=== PATIENT | male | born 1955 | race Caucasian/White ===

== ENCOUNTER → 2018-03-25 01:44 | Outpatient (CLI) | payer MEDICARE, SELFPAY ==
[2018-03-25 11:12] LABS: Hemoglobin A1C 7.8 % (4.5-6.2)
== END ==
PROVIDERS: PCP Family Medicine; Visit Provider Family Medicine
DX: E11.65 Type 2 diabetes mellitus with hyperglycemia (principal)
CPT/HCPCS: 36415; 83036

== ENCOUNTER 2018-06-24 01:39 | Outpatient (CLI) | payer MEDICARE, SELFPAY ==
[2018-06-24 12:12] LABS: Hemoglobin A1C 7.4 % (4.5-6.2)
== END 2018-06-24 01:59 ==
PROVIDERS: PCP Family Medicine; Visit Provider Family Medicine
DX: E11.65 Type 2 diabetes mellitus with hyperglycemia (principal)
CPT/HCPCS: 36415; 83036

== ENCOUNTER 2018-09-16 09:21 | Outpatient (CLI) | payer MEDICARE, SELFPAY ==
[2018-09-16 10:55] LABS: Hemoglobin A1C 7.8 % (4.5-6.2)
[2018-09-16 11:48] LABS: COMMENT (LAB VIEW ONLY) 50.69 mg/dL; Microalb ug/mg Crea 39.1 ug/mg Cr
[2018-09-16 13:16] LABS: CREATININE 0.87 mg/dL (0.70-1.30); Cholesterol 220 mg/dL (50-200); HDL Cholesterol 51 mg/dL (40-60); LDL CHOLESTEROL 143 mg/dL (<100); Potassium 4.3 mmol/L (3.5-5.1); Triglyceride 170 mg/dL (30-150)
== END 2018-09-16 09:41 ==
PROVIDERS: PCP Family Medicine; Visit Provider Family Medicine
DX: E11.9 Type 2 diabetes mellitus without complications (principal); I10 Essential (primary) hypertension
CPT/HCPCS: 36415; 80061; 83721; 82043; 82565; 82570; 83036; 84132

== ENCOUNTER 2018-12-23 11:30 | Outpatient (CLI) | payer MEDICARE, SELFPAY | END 2018-12-23 11:50 | PROVIDERS: PCP Family Medicine; Visit Provider Family Medicine | DX: E11.9 Type 2 diabetes mellitus without complications (principal) | CPT/HCPCS: 36415; 83036 ==

== ENCOUNTER 2019-03-24 01:46 | Outpatient (CLI) | payer MEDICARE, SELFPAY ==
[2019-03-24 12:59] LABS: Calculated LDL 96 mg/dL; Cholesterol 166 mg/dL (50-200); HDL Cholesterol 49 mg/dL (40-60); Triglyceride 109 mg/dL (30-150)
[2019-03-24 13:34] LABS: Hemoglobin A1C 8.5 % (4.5-6.2)
== END 2019-03-24 02:06 ==
PROVIDERS: PCP Family Medicine; Visit Provider Family Medicine
DX: E11.65 Type 2 diabetes mellitus with hyperglycemia (principal)
CPT/HCPCS: 36415; 80061; 83721; 83036

== ENCOUNTER 2019-08-02 08:14 | Outpatient (CLI) | payer MEDICARE, SELFPAY ==
[2019-08-02 10:18] LABS: Hemoglobin A1C 7.8 % (3.8-5.6)
== END 2019-08-02 08:34 ==
PROVIDERS: PCP Family Medicine; Visit Provider Family Medicine
DX: E11.9 Type 2 diabetes mellitus without complications (principal)
CPT/HCPCS: 36415; 83036

== ENCOUNTER 2020-01-31 07:08 | Outpatient (CLI) | payer MEDICARE, SELFPAY ==
[2020-01-31 12:43] LABS: CREATININE 1.02 mg/dL (0.70-1.30); Potassium 4.4 mmol/L (3.5-5.1)
[2020-01-31 13:27] LABS: COMMENT (LAB VIEW ONLY) 49.26 mg/dL; Microalb ug/mg Crea 9.7 ug/mg Cr
== END 2020-01-31 07:28 ==
PROVIDERS: PCP Family Medicine; Visit Provider Family Medicine
DX: E11.65 Type 2 diabetes mellitus with hyperglycemia (principal)
CPT/HCPCS: 36415; 82043; 82565; 82570; 83036; 84132

== ENCOUNTER 2020-05-25 04:21 | Outpatient (CLI) | payer MEDICARE, SELFPAY ==
[2020-05-25 13:15] LABS: Calculated LDL 80 mg/dL (<100); Cholesterol 159 mg/dL (<200); HDL Cholesterol 45 mg/dL (40-60); Triglyceride 172 mg/dL (<150)
[2020-05-25 14:16] LABS: Hemoglobin A1C 7.6 % (<5.7)
== END 2020-05-25 04:41 ==
PROVIDERS: PCP Family Medicine; Visit Provider Family Medicine
DX: E78.5 Hyperlipidemia, unspecified (principal); R73.9 Hyperglycemia, unspecified
CPT/HCPCS: 36415; 80061; 83036

== ENCOUNTER 2021-01-04 03:00 | Outpatient (CLI) | payer MEDICARE, SELFPAY ==
[2021-01-04 12:16] LABS: CREATININE 0.9 mg/dL (0.70-1.30); Potassium 4.3 mmol/L (3.5-5.1)
[2021-01-04 12:22] LABS: Hemoglobin A1C 7.5 % (<5.7)
== END 2021-01-04 03:01 | disposition home or self-care (01) ==
PROVIDERS: PCP Family Medicine; Visit Provider Family Medicine
DX: E11.65 Type 2 diabetes mellitus with hyperglycemia (principal); I10 Essential (primary) hypertension
CPT/HCPCS: 36415; 82565; 83036; 84132

== ENCOUNTER 2022-03-19 01:35 | Outpatient (CLI) | payer OTHER, MEDICAID, SELFPAY ==
[2022-03-19 10:41] LABS: HCT 45.5 % (40.0-50.0); HGB 15.4 g/dL (13.5-17.5); MCH 31.9 pg (27.0-33.0); MCHC 33.8 % (32.0-36.0); MCV 94 fL (80-95); MPV 9.1 fL (8.0-11.0); Platelet Count 168 10^3/uL (130-400); RBC 4.83 10^6/uL (4.36-5.78); RDW 13.1 % (11.8-14.1); RDW-SD 45.6 fL; WBC 7.07 10^3/uL (4.4-10.8)
[2022-03-19 10:48] LABS: CREATININE 0.8 mg/dL (0.70-1.30); Potassium 4.3 mmol/L (3.5-5.1)
== END 2022-03-19 01:36 | disposition home or self-care (01) ==
LOC: LBO 01:35
PROVIDERS: PCP Family Medicine; Visit Provider Family Medicine
DX: I10 Essential (primary) hypertension (principal); R53.83 Other fatigue
CPT/HCPCS: 36415; 85027; 82565; 84132

== ENCOUNTER 2022-06-19 09:06 | Outpatient (CLI) | payer OTHER, MEDICAID, SELFPAY ==
[2022-06-19 12:43] LABS: Calculated LDL 94 mg/dL (<100); Cholesterol 174 mg/dL (<200); HDL Cholesterol 63 mg/dL (40-60); Triglyceride 87 mg/dL (<150)
== END 2022-06-19 09:07 | disposition home or self-care (01) ==
LOC: LOS 09:07
PROVIDERS: PCP Family Medicine; Visit Provider Family Medicine
DX: E78.5 Hyperlipidemia, unspecified (principal)
CPT/HCPCS: 36415; 80061

== ENCOUNTER 2022-09-18 10:00 | Outpatient (REF) | payer OTHER, MEDICAID, SELFPAY ==
[2022-09-18 13:34] LABS: COMMENT (LAB VIEW ONLY) 40.44 mg/dL; Microalb ug/mg Crea 31.9 ug/mg Cr
== END 2022-09-18 10:01 | disposition home or self-care (01) ==
LOC: LBN 10:00
PROVIDERS: PCP Family Medicine; Visit Provider Family Medicine
DX: E11.9 Type 2 diabetes mellitus without complications (principal)
CPT/HCPCS: 82043; 82570

== ENCOUNTER 2023-02-19 04:16 | Outpatient (CLI) | payer OTHER, MEDICAID, SELFPAY ==
[2023-02-19 12:22] LABS: CREATININE 0.8 mg/dL (0.70-1.30); Potassium 4.1 mmol/L (3.5-5.1)
== END 2023-02-19 04:17 | disposition home or self-care (01) ==
LOC: LOS 04:16
PROVIDERS: Nurse Practitioner Family; PCP Family Medicine; Visit Provider Family Medicine
DX: I10 Essential (primary) hypertension (principal)
CPT/HCPCS: 36415; 82565; 84132

== ENCOUNTER 2023-09-11 16:50 | Outpatient (REF) | payer OTHER, MEDICAID, SELFPAY ==
[2023-09-11 22:18] LABS: COMMENT (LAB VIEW ONLY) 23.51 mg/dL; Microalb ug/mg Crea 19.1 ug/mg Cr
== END 2023-09-11 16:51 | disposition home or self-care (01) ==
LOC: LBN 16:50
PROVIDERS: PCP Family Medicine; Visit Provider Family Medicine
DX: E11.9 Type 2 diabetes mellitus without complications (principal)
CPT/HCPCS: 82043; 82570

== ENCOUNTER 2023-09-17 10:45 | Outpatient (CLI) | payer OTHER, SELFPAY ==
[2023-09-17 12:41] LABS: Hemoglobin A1C 7.5 % (<5.7)
== END 2023-09-17 10:46 | disposition home or self-care (01) ==
LOC: LOS 10:45
PROVIDERS: PCP Family Medicine; Visit Provider Family Medicine
DX: E11.9 Type 2 diabetes mellitus without complications (principal)
CPT/HCPCS: 36415; 83036

== ENCOUNTER 2024-08-06 01:26 | Outpatient (CLI) | payer MEDICARE, MEDICAID, SELFPAY ==
[2024-08-06 12:46] LABS: Calculated LDL 94 mg/dL (<100); Cholesterol 172 mg/dL (<200); HDL Cholesterol 62 mg/dL (40-60); Triglyceride 81 mg/dL (<150)
== END 2024-08-06 01:27 | disposition home or self-care (01) ==
LOC: LOS 01:26
PROVIDERS: PCP Family Medicine; Visit Provider Family Medicine
DX: E78.5 Hyperlipidemia, unspecified (principal)
CPT/HCPCS: 36415; 80061

== ENCOUNTER 2024-12-06 07:15 | Emergency (ER) | payer OTHER, MEDICARE, MEDICAID, SELFPAY ==
[2024-12-06] VITALS (12 sets, daily range): BP systolic 132–164; BP diastolic 72–77; PULSE 0–76; RESP 16; TEMP 36.5; O2SAT 98–100
--- NOTE | 2024-12-06 07:15 | DI.RAD_ITS ---
Exam(s) XR HAND RT COMPLETE EXAM: XR HAND RT COMPLETE CLINICAL HISTORY: RIGHT HAND PAIN. TECHNIQUE: 2D digital imaging was performed. COMPARISON: No exams were available for comparison FINDINGS: 3 views No evidence acute fracture nor dislocation. Mild deformity of the 5th finger noted but without fract ure or dislocation. No radiopaque foreign bodies. No osseous lesions nor erosions. Vascular calcif ications noted at the level the wrist. Degenerative changes in the DIP joint of the 3rd-middle finge r noted. There is also soft tissue swelling around the PIP joint of the 3rd finger. IMPRESSION: As above. DATA REPOSITORY: RADIATION DOSE DELIVERED:
--- NOTE | 2024-12-06 07:15 | DI.RAD_ITS ---
Exam(s) XR TIB/FIB RT EXAM: XR TIB/FIB RT CLINICAL HISTORY: LEG INJURY. TECHNIQUE: 2D digital imaging was performed. COMPARISON: No exams were available for comparison FINDINGS: Two views No evidence of fracture of the tibia and fibula. Bone density normal. No osseous lesions. No erosi ons. No radiopaque foreign bodies. IMPRESSION: Acute osseous findings. DATA REPOSITORY: RADIATION DOSE DELIVERED:
--- NOTE | 2024-12-06 07:15 | DI.RAD_ITS ---
Exam(s) XR ELBOW LT COMPLETE EXAM: XR ELBOW LT COMPLETE CLINICAL HISTORY: LEFT ELBOW PAIN. TECHNIQUE: 2D digital imaging was performed. COMPARISON: No exams were available for comparison FINDINGS: 3 views No evidence of acute fracture nor joint effusion or swelling of the olecranon bursa. There is an ent hesophyte on the posterior olecranon at the triceps insertion site but no fracture or swelling at thi s level. Radial head and neck appear unremarkable. There 2 small adjacent loose bodies evident in t he mid joint space. There are no osteochondral defects in the capitellum and trochlea. Findings at the level of the lateral epicondyle may reflect element of epicondylitis. IMPRESSION: Findings as above. DATA REPOSITORY: RADIATION DOSE DELIVERED:
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
[2024-12-06] MEDS: Acetaminophen 500 MG TAB 1000 MG PO (07:34)
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
[2024-12-06] MEDS: Silver sulfaDIAZINE 1% 25 GM TUBE TP (08:47)
== END 2024-12-06 08:53 | disposition home or self-care (01) ==
PROVIDERS: Emergency Provider Emergency Medicine; PCP Family Medicine
DX: M79.662 Pain in left lower leg (principal); M79.661 Pain in right lower leg; M25.522 Pain in left elbow; M79.641 Pain in right hand; I10 Essential (primary) hypertension; E78.5 Hyperlipidemia, unspecified; E11.9 Type 2 diabetes mellitus without complications; V43.52XA Car driver injured in collision with other type car in traffic accident, initial encounter; W22.11XA Striking against or struck by driver side automobile airbag, initial encounter
CPT/HCPCS: 99283; 73080; 73130; 73590

== ENCOUNTER 2024-12-22 03:00 | Outpatient (CLI) | payer MEDICARE, MEDICAID, SELFPAY ==
[2024-12-22 12:20] LABS: HCT 46.2 % (40.0-50.0); HGB 15.1 g/dL (13.5-17.5); MCH 31.2 pg (27.0-33.0); MCHC 32.7 % (32.0-36.0); MCV 96 fL (80-95); MPV 9.1 fL (8.0-11.0); Platelet Count 172 10^3/uL (130-400); RBC 4.84 10^6/uL (4.36-5.78); RDW 13.1 % (11.8-14.1); RDW-SD 46.3 fL; WBC 5.93 10^3/uL (4.4-10.8)
[2024-12-22 12:28] LABS: Calculated LDL 78 mg/dL (<100); Cholesterol 157 mg/dL (<200); HDL Cholesterol 54 mg/dL (>or=40); Triglyceride 126 mg/dL (<150)
[2024-12-22 12:46] LABS: Hemoglobin A1C 7.4 % (<5.7)
== END 2024-12-22 03:01 | disposition home or self-care (01) ==
LOC: LOS 03:00
PROVIDERS: PCP Family Medicine; Visit Provider Family Medicine
DX: E11.9 Type 2 diabetes mellitus without complications (principal)
CPT/HCPCS: 36415; 80061; 85027; 83036

== ENCOUNTER 2025-03-30 01:11 | Outpatient (CLI) | payer MEDICARE, SELFPAY ==
--- NOTE | 2025-03-30 09:23 | DI.RAD_ITS ---
Exam(s) XR HIP LT COMPLETE AP PELVIS EXAM: XR HIP LT COMPLETE AP PELVIS CLINICAL HISTORY: left hip pain,M25.552. TECHNIQUE: 2D digital imaging was performed of the left hip. Two views were obtained. AP pelvis and lateral left hip views were obtained. COMPARISON: No exams were available for comparison FINDINGS: BONES: No acute fracture is present. No bony destructive lesion is seen. Incidental note is made of a bone island in the right femoral neck. JOINTS: No dislocation present. The left hip is well maintained. No significant joint space narrowing is present. SOFT TISSUE: Normal. IMPRESSION: No acute abnormality. DATA REPOSITORY: RADIATION DOSE DELIVERED:
== END 2025-03-30 01:31 ==
LOC: DI 01:11
PROVIDERS: PCP Family Medicine; Visit Provider Family Medicine
DX: M25.552 Pain in left hip (principal)
CPT/HCPCS: 73502

== ENCOUNTER → 2025-04-21 08:41 | Outpatient (BNVA) | payer MEDICARE, SELFPAY | PROVIDERS: PCP Family Medicine; Referring Provider Family Medicine; Visit Provider Physician Assistant | DX: M70.62 Trochanteric bursitis, left hip (principal) | CPT/HCPCS: 20610; J1010 ==

== ENCOUNTER 2025-04-28 11:28 | Outpatient (CLI) | payer MEDICARE, SELFPAY ==
[2025-04-28 16:38] LABS: COMMENT (LAB VIEW ONLY) 48.84 mg/dL; Microalb ug/mg Crea 32.4 ug/mg Cr
[2025-04-28 17:06] LABS: ALT 39 U/L (16-63); AST 26 U/L (15-37); Albumin 4.1 g/dL (3.4-5.0); Alkaline Phosphatase 36 U/L (46-116); Anion Gap 10.6 mmol/L (3-11); BUN 21 mg/dL (7-18); Bilirubin, Total 0.8 mg/dL (0.2-1.0); CO2 24.4 mmol/L (21.0-32.0); Calcium 9.1 mg/dL (8.5-10.1); Chloride 104 mmol/L (98-107); Estimated GFR 95.80 (mL/min/1.73m2); Glucose 135 mg/dL (74-106); Potassium 3.7 mmol/L (3.5-5.1); Sodium 139 mmol/L (136-145); TSH (W/Ref FT4) 2.24 uIU/mL (0.36-3.74); Total Protein 7.3 g/dL (6.4-8.2)
== END 2025-04-28 11:29 | disposition home or self-care (01) ==
LOC: LOS 11:28
PROVIDERS: PCP Family Medicine; Visit Provider Family Medicine
DX: E11.9 Type 2 diabetes mellitus without complications (principal)
CPT/HCPCS: 36415; 80053; 82043; 82570; 84443